=== PATIENT | male | born 1995 | race Caucasian/White ===

== ENCOUNTER 2016-08-22 20:16 | Inpatient (IN) | payer MEDICAID, OTHER ==
--- NOTE | 2016-08-22 20:51 | ED ---
General Adult HPI - General Chief complaint: Psychiatric Symptoms Stated complaint: Sucidial thoughts Time Seen by Provider: 08/22/16 20:30 Source: patient, family, RN notes reviewed Mode of arrival: ambulatory Limitations: no limitations - History of Present Illness Initial comments: Chief complaint and history of present illness a 21-year-old male here with his brother. The patient has a history of depression and bipolar disorder. He used to be on medications but stopped them about 3 months ago. Family talked him into coming because she's been depressed. Being followed by anyone in the outpatient area. Denies any suicidal thoughts specifically at this time but in the past he states while hunting he was to be about shooting himself but because of ear came by he states that dear saved his life. - Related Data Home Medications Medication Instructions Recorded Confirmed No Known Home Medications [No 08/22/16 08/22/16 Known Home Medications] Allergies Allergy/AdvReac Type Severity Reaction Status Date / Time No Known Allergies Allergy Verified 08/22/16 21:26 Review of Systems ROS Statement: Those systems with pertinent positive or pertinent negative responses have been documented in the HPI. Review of systems denying any headache or visual acuity changes denying chest pain shows breath GI/ problems emotionally the patient's very distraught. No specific plan but in general he is having some suicidal thoughts. Denies overdosing. All systems are reviewed patient denies a significant past medical problems. Surgeries on the right wrist only. Family history great-grandmother had lung cancer. Patient denies ALLERGIES. He does smoke cigarettes and marijuana. Denies alcohol use ROS Other: All systems not noted in ROS Statement are negative. Past Medical History Past Medical History: No Reported History History of Any Multi-Drug Resistant Organisms: None Reported Past Surgical History: Orthopedic Surgery Past Psychological History: Anxiety, Bipolar, Depression, Schizophrenia Smoking Status: Current every day smoker Past Alcohol Use History: None Reported Past Drug Use History: Marijuana General Exam - General Exam Comments Initial Comments: General: The patient is awake presents very quiet, appears depressed, sullen. His brother and he stated he has thought about suicide but no specific plan. Vital signs show temperature 99.0 pulse 80 respiratory rate 18 pulse ox 99% room air blood pressure 149/79. Elevated systolic noted. Patient is going to be following up with a family physician in the next 1-4 weeks Eye: Pupils are equal, round and reactive to light, extra-ocular movements are intact ; there is normal conjunctiva bilaterally. No signs of icterus. Ears, nose, mouth and throat: There are moist mucous membranes and no oral lesions. Neck: The neck is supple, there is no tenderness , no anterior cervical lymphadenopathy. Cardiovascular: There is a regular rate and rhythm. No murmur, rub or gallop is appreciated. Respiratory: Lungs are clear to auscultation, respirations are non-labored, breath sounds are equal. No wheezes, stridor, rales, or rhonchi. Gastrointestinal: Soft, non-distended, non-tender abdomen without masses or organomegaly noted. There is no rebound or guarding present. No CVA tenderness. Bowel sounds are unremarkable. States when he gets depressed does get an upset stomach. Back: There is no tenderness to palpation in the midline. There is no obvious deformity. Musculoskeletal: Normal ROM, no tenderness, There is no pedal edema. There is no calf tenderness or swelling. Sensation intact. Neurological: No evidence of any gross neuro deficits. Skin: Skin is warm and dry and no rashes or lesions are noted. Psychiatric: Depressed, possibly thinking of suicide without a specific plan history of depression and possible bipolar disorder. Stop taking medications 3 months ago. Limitations: no limitations Course Vital Signs 08/22/16 20:20 Temperature 99.0 F Pulse Rate 80 Respiratory 18 Rate Blood Pressure 149/79 O2 Sat by Pulse 99 Oximetry Medical Decision Making - Medical Decision Making The patient's drug screen was negative except for marijuana. He was also noted to be negative for aspirin and Tylenol. Psychiatric nurse spoke with him decision was made for the patient be admitted to 3 . diagnosis of depression suicidal. - Lab Data Lab Results 08/22/16 08/22/16 Range/Units 20:55 21:00 Salicylates <1.0 mg/dL Urine Opiates Screen Not Detected (NotDetected) Ur Oxycodone Screen Not Detected (NotDetected) Urine Methadone Screen Not Detected (NotDetected) Ur Propoxyphene Screen Not Detected (NotDetected) Acetaminophen <10.0 ug/mL Ur Barbiturates Screen Not Detected (NotDetected) U Tricyclic Antidepress Not Detected (NotDetected) Ur Phencyclidine Scrn Not Detected (NotDetected) Ur Amphetamines Screen Not Detected (NotDetected) U Methamphetamines Scrn Not Detected (NotDetected) U Benzodiazepines Scrn Not Detected (NotDetected) Urine Cocaine Screen Not Detected (NotDetected) U Marijuana (THC) Screen Detected H (NotDetected) Disposition Clinical Impression: Depression, Suicidal ideation Disposition: TRANSFER TO PSYCH HOSP/UNIT Condition: Serious
[2016-08-22 21:40] LABS: Acetaminophen <10.0 ug/mL; Salicylate <1.0 mg/dL
[2016-08-22] MEDS ORDERED: ACETAMINOPHEN TAB 325 MG TAB PO PRN (23:58)
[2016-08-22] MEDS ORDERED: MAGNESIUM HYDROXIDE 2,400 MG/10 ML CUP PO PRN (23:58)
[2016-08-22] MEDS ORDERED: ZIPRASIDONE 20 MG VIAL IM PRN (23:58)
[2016-08-22] MEDS ORDERED: MAG HYDROX/AL HYDROX/SIMETH 30 ML CUP PO PRN (23:58)
[2016-08-23] MEDS ORDERED: LORazepam 1 MG TAB PO PRN (00:02)
[2016-08-23 00:22] LABS: Appearance,Urine Cloudy (Clear); Bilirubin,Urine Negative (Negative); Calcium Oxalate Crystals,Urine Many /hpf; Glucose,Urine (UA) Negative (Negative); Ketones,Urine Negative (Negative); Leukocyte Esterase,Urine Negative (Negative); Mucus,Urine Moderate /hpf; Nitrite,Urine Negative (Negative); Particle Count 4231; Protein,Urine Trace (Negative); RBC,Urine 3 /hpf (0-5); Specific Gravity,Urine 1.019 (1.001-1.035); Squamous Epithelial Cell,Urine <1 /hpf (0-4); UA Billing (MACRO vs. MICRO) MICRO; WBC,Urine 2 /hpf (0-5)
[2016-08-23 03:45] VITALS: BMI 21.5
[2016-08-23 10:47] LABS: Basophils # (A) 0.1 k/uL (0-0.2); Basophils % (A) 1 %; CH 28.8; CHCM 33.9; Eosinophils # (A) 0.2 k/uL (0-0.7); Eosinophils % (A) 2 %; HGB 16.3 gm/dL (13.0-17.5); Luc % (Auto) 3; Lymphocytes % (A) 24 %; MCH 28.3 pg (25.0-35.0); MCHC 33.2 g/dL (31.0-37.0); MCV 85.4 fL (80.0-100.0); Mean Platelet Volume 7.2; Monocytes # (A) 0.5 k/uL (0-1.0); Monocytes % (A) 7 %; Neutrophils % (A) 63 %; RBC 5.75 m/uL (4.30-5.90); RDW 13.6 % (11.5-15.5); WBC (Perox) 8.22
[2016-08-23 10:51] LABS: ALT 31 U/L (21-72); AST 23 U/L (17-59); Alkaline Phosphatase 61 U/L (38-126); Anion Gap 9 mmol/L; Blood Urea Nitrogen 8 mg/dL (9-20); Calcium 9.7 mg/dL (8.4-10.2); Carbon Dioxide 30 mmol/L (22-30); Chloride 105 mmol/L (98-107); Glucose 69 mg/dL (74-99); Non-African American GFR(MDRD) >60 (>60 ml/min/1.73 sqM); Potassium 4.5 mmol/L (3.5-5.1); Sodium 144 mmol/L (137-145); Total Bilirubin 0.8 mg/dL (0.2-1.3); Total Protein 7.5 g/dL (6.3-8.2)
[2016-08-23] MEDS: NICOTINE 14MG/24HR PATCH TRANSDERM SCH (11:15)
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
--- NOTE | 2016-08-23 17:20 | CONS ---
DATE OF CONSULTATION: REASON FOR CONSULTATION: ( ) The patient is a 21 -year-old gentleman admitted secondary to suicidal ideation and severe depression and the patient ( ) is being managed by primary care physician. The patient denied any fever or chills. The patient started taking his home medications about 3 months ago. Denied any alcohol abuse. The patient does smoke. The patient does have history of ( ). Denied any shortness of breath, or orthopnea, PND, pedal edema. No signs or symptoms of congestive heart failure. REVIEW OF SYSTEMS: CONSTITUTIONAL: No fever, no malaise, no fatigue. HEENT: No recent visual problems or hearing problems. Denied any sore throat. CARDIOVASCULAR: No chest pain, orthopnea, PND, no palpitations, no syncope. PULMONARY: No shortness of breath, no cough, no hemoptysis. GASTROINTESTINAL: No diarrhea, no nausea, no vomiting, no abdominal pain. Normoactive bowel sounds. NEUROLOGICAL: No headaches, no weakness, no numbness. HEMATOLOGICAL: Denies any bleeding or petechiae. GENITOURINARY: Denies any burning micturition, frequency, or urgency. MUSCULOSKELETAL/RHEUMATOLOGICAL: Denies any joint pain, swelling, or any muscle pain. ENDOCRINE: Denies any polyuria or polydipsia. PSYCHIATRIC: As described in HPI. The rest of the 14 point review of systems is negative. PAST MEDICAL HISTORY: Significant for mitral regurgitation, some orthopedic surgery in the past, bipolar and depression. SOCIAL HISTORY: The patient does smoke every day. Occasional use of marijuana. He denied any alcohol abuse. PHYSICAL EXAMINATION: VITAL SIGNS: Temperature 99.0, pulse of 80 respiratory rate 18, blood pressure 149/79. Saturating at 99% on room air. GENERAL: The patient is alert and oriented x3, not in any acute distress. Well developed, well nourished. HEENT: Pupils are round and equally reacting to light. EOMI. No scleral icterus. No conjunctival pallor. Normocephalic, atraumatic. No pharyngeal erythema. No thyromegaly. CARDIOVASCULAR: S1 and S2 present. There is minimal 2/6 systolic murmur in the tricuspid area. No rubs, or gallops are appreciated. PULMONARY: Chest is clear to auscultation, no wheezing or crackles. ABDOMEN: Soft, nontender, nondistended, normoactive bowel sounds. No palpable organomegaly. MUSCULOSKELETAL: No joint swelling or deformity. EXTREMITIES: No cyanosis, clubbing, or pedal edema. NEUROLOGICAL: Gross neurological examination did not reveal any focal deficits. SKIN: No rashes. LABORATORY DATA: Urine drug screen is positive for marijuana. ASSESSMENT AND PLAN: 1. Depression and suicidal ideation management as per primary service. 2. Mitral regurgitation. No signs or symptoms of congestive failure. 3. Marijuana abuse and nicotine abuse. Counseling was provided. No further testing is necessary. Will sign off at this point of time. Please call us back if needed. Thank you for letting me participate in this patient's care.
[2016-08-24] MEDS ORDERED: CITALOPRAM HYDROBROMIDE 20 MG TAB PO SCH (09:00)
[2016-08-24] MEDS: NICOTINE 14MG/24HR PATCH TRANSDERM SCH (09:27)
--- NOTE | 2016-08-24 16:19 | P.PN ---
Progress Note - Text Interval history: He endorses having "TWO DIFFERENT SPIRITS IN MY HEAD ,ONE SELF ACCUSATION SPIRIT AND ONE EVIL SPIRIT"disorganized speech ,flat affect, bizarre delusional thinking ,de personalization ,recurrent experiences of feeling detached from his body and power to predict future He endorses poor appetite and "So sleepy with night medication" Mental status exam: patient was dressed in his clothing ,fair grooming , avoiding eyes contact ,flat affect ,denies any current suicidal or homicidal ideation but endorses psychotic features :paranoia ,delusion and hallucination, concrete ,disorganized thinking ,insight and judgment impaired ASSESSMENT :patient is still psychotic ,ambivalent about medications but has been compliant with it ,was seen by Hospitalist ,patient has Mitral valve reg with no symptoms Plan: Will order EKG ,I will discontinue Celexa due to drug interaction with Seroquel on EKG ,start Paxil ,continue Seoquel 150 mg ,encourage groups participation
--- NOTE | 2016-08-25 10:28 | ECHOF ---
Referral Reason:r/o mitral insufficiency due to regurgitation MEASUREMENTS -------- HEIGHT: 175.3 cm WEIGHT: 65.8 kg BP: 102/59 IVSd: 0.9 cm (0.6 - 1.1) LVIDd: 4.0 cm (3.9 - 5.3) LVPWd: 1.2 cm (0.6 - 1.1) IVSs: 1.4 cm LVIDs: 2.9 cm LVPWs: 1.6 cm Ao Diam: 2.9 cm (2.0 - 3.7) AV Cusp: 2.3 cm (1.5 - 2.6) LA Diam: 3.1 cm (2.7 - 3.8) MV EXCURSION: 21.562 mm (> 18.000) MV EF SLOPE: 130 mm/s (70 - 150) EPSS: 0.4 cm MV E Guillermo: 0.53 m/s MV DecT: 317 ms MV A Guillermo: 0.25 m/s MV E/A Ratio: 2.10 RAP: 5.00 mmHg RVSP: 14.62 mmHg FINDINGS -------- Sinus rhythm. This was a technically good study. Left ventricular wall thickness is normal. Overall left ventricular systolic function is normal with, an EF between 55 - 60 %. The right ventricle is normal in size and function. The left atrium is normal in size. The right atrium is normal in size. The aortic valve is trileaflet, and appears structurally normal. No aortic stenosis or regurgitation. Normal appearing mitral valve. Trace tricuspid regurgitation present. The right ventricular systolic pressure, as measured by Doppler, is 14.62mmHg. Pulmonic valve appears structurally normal. The aortic root size is normal. The pericardium is normal. CONCLUSIONS -------- 1. Sinus rhythm. 2. Trace tricuspid regurgitation present. 3. The right ventricular systolic pressure, as measured by Doppler, is 14.62mmHg. 4. Pulmonic valve appears structurally normal. 5. The aortic root size is normal. 6. The pericardium is normal. 7. This was a technically good study. 8. Left ventricular wall thickness is normal. 9. Overall left ventricular systolic function is normal with, an EF between 55 - 60 %. 10. The right ventricle is normal in size and function. 11. The left atrium is normal in size. 12. The right atrium is normal in size. 13. The aortic valve is trileaflet, and appears structurally normal. No aortic stenosis or regurgitation. 14. Normal appearing mitral valve. SUPERCALENDER OPERATOR HELPER: Tiffanie Hyde RDCS
[2016-08-25] MEDS: PARoxetine 20 MG TAB PO SCH (10:41)
[2016-08-25] MEDS: NICOTINE 14MG/24HR PATCH TRANSDERM SCH (10:42)
--- NOTE | 2016-08-25 15:59 | P.PN ---
Progress Note - Text Interval history: He endorses paranoia ,suspicious feeling ,persecutory and somatic delusion "People talking about me behind my back ,my body is burning ", had family meeting with mother and SW this afternoon ,disorganized ,still having hallucinations "MY BRAIN WILL EXPLODE",refused to elaborate about content of hallucinations EKG:abnormal ECHO: NORMAL ,MITRAL VALVE :normal Mental status exam: patient was dressed in hospital gown ,avoiding eyes contact ,flat affect ,denies any current suicidal or homicidal ideation but endorses psychotic features :paranoia ,delusion and hallucination,concrete ,disorganized thinking ,insight and judgment impaired ASSESSMENT :patient is still psychotic ,ambivalent about medications but has been compliant with it Plan: Increase Seroquel to eliminate psychotic features ,continue Paxil , encourage groups participation
[2016-08-25] MEDS ORDERED: QUEtiapine XR 200 MG TAB.ER.24H PO SCH (19:00)
[2016-08-26] MEDS: NICOTINE 14MG/24HR PATCH TRANSDERM SCH (09:48)
[2016-08-26] MEDS: PARoxetine 20 MG TAB PO SCH (09:48)
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
[2016-08-27 07:06] VITALS: RESP 16
[2016-08-27] MEDS: PARoxetine 20 MG TAB PO SCH (09:15)
[2016-08-27] MEDS: NICOTINE 14MG/24HR PATCH TRANSDERM SCH (09:16)
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
[2016-08-28] MEDS: PARoxetine 20 MG TAB PO SCH (08:45)
[2016-08-28] MEDS: NICOTINE 14MG/24HR PATCH TRANSDERM SCH (10:35)
--- NOTE | 2016-08-28 15:21 | P.PN ---
Progress Note - Text Interval history: Patient seen in cross coverage today for Dr. Stanley. He reports that he slept very well last night and he is making himself eat. He does describe that he continues to have some hot flashes type feelings but they' re less intense and seem to be improved today. Says he notices after he takes his morning medication. He has been attending groups. Mental status exam: He is alert and cooperative with the interview. His speech is fluent, not rapid or pressured. Thought processes are organized. His mood overall seems improved. His affect does show some range. He denies any hallucinations. He denies any thoughts of harm to self or others. He does not make any neeru delusional statements and does not show any agitation. Plan: We'll maintain current psychotropic medications. Dr. Stanley will resume care this patient starting tomorrow.
[2016-08-29] MEDS: PARoxetine 20 MG TAB PO SCH (08:46)
[2016-08-29] MEDS: NICOTINE 14MG/24HR PATCH TRANSDERM SCH (08:48)
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
--- NOTE | 2016-08-29 10:57 | CONS ---
DATE OF CONSULTATION: 08/26/2016. REASON FOR CONSULTATION: Abnormal EKG. HISTORY OF PRESENT ILLNESS: This is a pleasant 21-year-old gentleman who sees Dr. Shayne Man in the office as an outpatient with the last office was performed in March 2016. At that point, the patient underwent an echocardiogram, stress echocardiogram, and Holter, and everything came in to be unremarkable. The patient at this time was admitted to the psych unit with suicidal ideation, as well as depression. We got involved in the care of the patient because an EKG was performed and was read as abnormal. Further analyzing on the EKG showed what seems to be sinus mechanism with evidence of early repolarization. Clinically, the patient denies having any angina, chest discomfort, but he describes some atypical chest discomfort. No difficulty in breathing. No heart racing or fluttering. No dizziness or lightheadedness and no syncope. During his hospitalization, he underwent an echocardiogram and that showed normal LV function without any significant valvular abnormalities. The patient's past medical history includes: Depression. There is no cardiovascular disease was documented. There is no diabetes or hypertension or dyslipidemia. SOCIAL HISTORY: The patient has history of smoking marijuana. FAMILY HISTORY: There is no indicative of any premature coronary artery disease. Current medications include the followin. Tylenol 50 mg q.4 hours p.r.n. 2. Lorazepam 1 mg p.o. q.8h. p.r.n. 3. Maalox 30 mL p.o. q.4 hours p.r.n. 4. Magnesium oxide 2400 p.o. daily p.r.n. 5. Nicotine patches. 6. Paroxetine 20 milligrams p.o. daily. 7. Seroquel 300 mg p.o. daily. 8. Samuel 20 mg intramuscular b.i.d. p.r.n. PHYSICAL EXAMINATION: GENERAL APPEARANCE: The patient does not look in any pain or distress. Vitals showed temp of 97.8, heart rate 66, respiratory rate 16, pressure is 110/55, saturation is normal on room air. CARDIOVASCULAR: Examination shows regular rate and rhythm. Respiratory examination shows clear breathing sounds bilaterally. Diagnostic work-up the EKG showed sinus rhythm with evidence of early repolarization. WBC 8.0, hemoglobin 16.3, hematocrit is 85.4, platelet count 144,000. Sodium 144, potassium 4.5. GFR more than 60. ASSESSMENT: 1. Suicidal ideation. 2. Depression. PLAN: 1. The patient underwent and the patient's EKG showed early repolarization. 2. The echocardiogram showed normal LV function. 3. He is asymptomatic from the cardiovascular standpoint of view. 4. There is no reason for any further cardiac work-up and will follow up with the patient on p.r.n. basis. Thank you for allowing me to participate in his care.
[2016-08-29] MEDS ORDERED: clonazePAM 0.5 MG TAB PO SCH (21:00)
[2016-08-29] MEDS ORDERED: PRAZOSIN 1 MG CAP PO SCH (21:00)
[2016-08-30 06:39] VITALS: BP 100/60; PULSE 51; TEMP 97.7
[2016-08-30] MEDS ORDERED: PANTOPRAZOLE 40 MG TABLET PO SCH (07:30)
[2016-08-30] MEDS: NICOTINE 14MG/24HR PATCH TRANSDERM SCH (08:39)
[2016-08-30] MEDS ORDERED: PARoxetine 10 MG TAB PO SCH (09:00)
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
== END 2016-08-30 11:43 | disposition home or self-care (01) | DRG 885 ==
LOC: EC 20:16 → 3MHU 23:40
PROVIDERS: ADMIT Psychiatry & Neurology Psychiatry; ATTEND Psychiatry & Neurology Psychiatry
DX: F25.9 Schizoaffective disorder, unspecified (principal); R45.851 Suicidal ideations; Z91.14 Patient's other noncompliance with medication regimen; F17.200 Nicotine dependence, unspecified, uncomplicated; F12.10 Cannabis abuse, uncomplicated; F43.10 Post-traumatic stress disorder, unspecified; I34.0 Nonrheumatic mitral (valve) insufficiency; Z81.8 Family history of other mental and behavioral disorders
CPT/HCPCS: 36415; 80053; 80306; 81001; 82075; 83520; 84443; 85025; 93005; 93306; 99285